=== PATIENT | male | born 1965 | race Two or more races ===

== ENCOUNTER 2017-03-31 04:48 | Emergency (ER) | payer MEDICAID ==
--- NOTE | 2017-03-31 04:52 | EDPHY ---
H & P HPI/ROS: HPI CHIEF COMPLAINT: Chills, muscle aches, joint pain x3 days. HISTORY OF PRESENT ILLNESS: Patient otherwise healthy 52-year-old male, denies any significant medical history does not take any daily medications presents emergency room muscle aches joint pain and intermittent fever for the last 3 days. He has had a nonproductive cough. He denies any chest pain or shortness of breath. Patient states that he may have the flu. He decided come to the emergency room as his muscle aches and joint pain got worse this evening. Denies any diarrhea. Denies vomiting. Denies chest pain or shortness of breath. Past Medical History: No significant medical history Past Surgical History: No significant surgical history Social History: Denies daily use drugs alcohol tobacco. Family History: Noncontributory ROS REVIEW OF SYSTEMS: A comprehensive 10 point review of systems is otherwise negative aside from elements mentioned in the history of present illness. Exam Constitutional appears well nontoxic, vital signs reviewed triage, triage nursing summary reviewed, vital signs reviewed, awake/alert. Eyes normal conjunctivae and sclera, EOMI, PERRLA. HENT normal inspection, atraumatic, moist mucus membranes, no epistaxis, neck supple/ no meningismus, no raccoon eyes. Respiratory clear to auscultation bilaterally, normal breath sounds, no respiratory distress, no wheezing. Cardiovascular rate normal, regular rhythm, no murmur, no edema, distal pulses normal. Gastrointestinal soft, non-tender, no rebound, no guarding, normal bowel sounds, no distension, no pulsatile mass. Genitourinary no CVA tenderness. Musculoskeletal no midline vertebral tenderness, full range of motion, no calf swelling, no tenderness of extremities, no meningismus, good pulses, neurovascularly intact. Skin pink, warm, & dry, no rash, skin atraumatic. Neurologic awake, alert and oriented x 3, AAOx3, moves all 4 extremities equally, motor intact, sensory intact, CN II-XII intact, normal cerebellar, normal vision, normal speech. Psychiatric normal mood/affect. Heme/Lymph/Immune no lymphadenopathy. Differential Diagnosis: Includes but is not limited to in a particular order influenza, viral syndrome, upper respiratory tract infection, pneumonia Medical Decision Making: Plan for this patient check influenza, two view chest x-ray to rule out pneumonia. He appears well nontoxic I do not believe he needs blood work. Will dose with Tylenol Motrin for muscle aches and joint pain at this time. Re-evaluate. Re-evaluation: 0559: Chest x-ray reviewed by myself. No acute cardiopulmonary disease specifically I do not appreciate a pneumonia. Patient influenza a is positive. Started on Tamiflu in the emergency room. Recommend going home and resting drinking lots of fluids alternating Tylenol Motrin for fever control. Return precautions given. He understands return emergency room if develops worsening symptoms includes vomiting, shortness of breath, high fever or feeling worse. Source: Patient - Medical/Surgical History Other PMH: healthy per pt - Social History Smoking Status: Current every day smoker Constitutional: Initial Vital Signs Temperature (C) 37.2 C 03/31/17 04:49 Heart Rate 69 03/31/17 04:49 Respiratory Rate 18 03/31/17 04:49 Blood Pressure 150/104 H 03/31/17 04:49 O2 Sat (%) 91 L 03/31/17 04:49 O2 Delivery Mode Room Air Allergies/Adverse Reactions: No Known Allergies Allergy (Unverified 02/18/14 17:42) Home Medications: Medication Instructions Recorded Cyclobenzaprine [Flexeril 10 MG 10 mg PO TID PRN #21 tab 02/18/14 (RX)] Oseltamivir Phosphate [Tamiflu 75 75 mg PO BID #10 cap 03/31/17 mg (*)] Medical Decision Making - Data Points Laboratory Results: 03/31/17 04:55 Nasal Influenza A PCR Pending Nasal Influenza B PCR Pending Medications Given: Discontinued Medications Acetaminophen (Tylenol) 1,000 mg PO EDNOW ONE Stop: 03/31/17 04:59 Last Admin: 03/31/17 05:08 Dose: 1,000 mg Ibuprofen (Motrin) 800 mg PO EDNOW ONE Stop: 03/31/17 04:59 Last Admin: 03/31/17 05:08 Dose: 800 mg Departure - Departure Disposition: Home, Routine, Self-Care Clinical Impression: Influenza A Condition: Good Instructions: Influenza (ED) Additional Instructions: 1. Make sure to drink lots of fluids stay well-hydrated. 2. Keep her fever down with Tylenol Motrin you can alternate these every 4-6 hours. 3. Return emergency room if you have worsening pain vomiting fever questions or concerns you do not feel well. Referrals: NONE *PRIMARY CARE P,. [Primary Care Provider] - As per Instructions Prescriptions: Oseltamivir Phosphate [Tamiflu 75 mg (*)] 75 mg PO BID #10 cap
[2017-03-31 04:53] VITALS: RESP 18
[2017-03-31] MEDS ORDERED: ACETAMINOPHEN 500 MG TAB PO ONE (04:58)
[2017-03-31] MEDS ORDERED: IBUPROFEN 800 MG TAB PO ONE (04:58)
[2017-03-31] MEDS ORDERED: OSELTAMIVIR PHOSPHATE 75 MG CAP PO ONE (05:58)
[2017-03-31 05:59] LABS: PRINT OR CALL CRITICALS TECH CALL
[2017-03-31 06:39] VITALS: BP 136/100; PULSE 73; TEMP 99.7; O2SAT 96
== END 2017-03-31 06:39 | disposition home or self-care (01) ==
DX: J10.1 Influenza due to other identified influenza virus with other respiratory manifestations (principal); F17.200 Nicotine dependence, unspecified, uncomplicated